=== PATIENT | female | born 1940 | race Caucasian/White ===

== ENCOUNTER 2016-12-21 20:22 | Emergency (ER) | payer OTHER, SELFPAY ==
[~2016-12-21 20:22] MED LIST: ASPIRIN81 M2 PO; BUMEX1 MG PO; COREG6.25 M1; COREG6.25 MG PO; ENTRESTO 24 MG1 EACH; K-DUR10 MEQ PO; LEVAQUIN PO; LIPITOR40 MG PO; NO MEDICATIONS; PREDNISONE PO; TYLENOL325 M1 PO
[2016-12-21 20:50] LABS: BASOPHIL# 0.1 X10e3 (0-0.3); BASOPHIL% 0.9 % (0-2.5); EOSINOPHIL# 0.5 X10e3 (0-0.7); EOSINOPHIL% 3.9 % (0.0-7.0); HEMATOCRIT 32.8 % (35.0-45.0); HEMOGLOBIN 10.7 gm/dL (12.0-16.0); LYMPHOCYTE# 1.7 X10e3 (1.0-3.5); MEAN CELL VOLUME 83.5 FL (83-96); MEAN CORPUSCULAR HEMOGLOBIN 27.3 PG (28-34); MEAN CORPUSCULAR HGB CONC 32.7 g/dL (30-36); MEAN PLATELET VOLUME 7.9 FL (6.5-11.5); MONOCYTE# 0.9 X10e3 (0-1.0); MONOCYTE% 7.6 % (3.0-12.0); NEUTROPHIL# 9.2 X10e3 (1.5-7.1); NEUTROPHIL% 73.6 % (40-75); PLATELET COUNT 283 X10e3 (140-420); RED BLOOD COUNT 3.93 X10e (3.90-5.30); RED CELL DISTRIBUTION WIDTH 14.9 % (11.0-15.5); WHITE BLOOD COUNT 12.5 X10e3 (4.0-10.5)
[2016-12-21 20:54] LABS: DIFF IND NO
[2016-12-21 21:06] LABS: PROTHROMBIN TIME (PATIENT) 10.1 SECONDS (9.6-11.5)
[2016-12-21 21:07] LABS: PARTIAL THROMBOPLASTIN TIME 25.1 SECONDS (23.5-31.3)
[2016-12-21 21:14] LABS: BUN/CREATININE RATIO 36.25; CALCIUM SERUM 8.5 mg/dL (8.4-10.2); CREATININE SERUM 0.8 mg/dL (0.6-1.4); GLOM FILT RATE Estimated 72.2 mL/min (>60); POTASSIUM 3.6 mmol/L (3.5-5.1)
== END 2016-12-21 21:40 | disposition home or self-care (01) ==
LOC: CED 20:22
PROVIDERS: Emergency Medicine
DX: R04.0 Epistaxis (principal); Z86.79 Personal history of other diseases of the circulatory system
CPT/HCPCS: 30901; 80048; 85025; 85610; 85730; 99283